=== PATIENT | male | born 1985 ===

== ENCOUNTER 2017-04-29 17:41 | Emergency (ER) | payer MEDICAID ==
[2017-04-29 18:01] VITALS: TEMP 98.4; O2SAT 98
[2017-04-29] MEDS ORDERED: Tetracaine 0.5% Ophth 2 ML BOTTLE OD ONE (18:50)
[2017-04-29] MEDS ORDERED: Fluorescein 1 mg Ophthalmic Strip OD ONE (18:51)
[2017-04-29] MEDS ORDERED: Fluorescein 1 mg Ophthalmic Strip ONE (18:54)
[2017-04-29] MEDS ORDERED: Tetracaine 0.5% Ophth (OR ONLY) ONE (18:55)
--- NOTE | 2017-04-29 19:23 | C.PDOC ---
History Of Present Illness 04/29/2017 Silver Mauro is a 31 year old male, who presents to the emergency department complaining of pain and redness to the right eye, along with tearing. 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 Patient denies chest pain, shortness of breath, headache, fever, chills, cough, nausea, vomiting, diarrhea, abdominal pain, dizziness, or other complaints. Time Seen by Provider: 04/29/17 18:03 Chief Complaint (Nursing): Eye Problem History Per: Patient History/Exam Limitations: no limitations Onset/Duration Of Symptoms: Days (3 days ago) Current Symptoms Are (Timing): Still Present Injury To Eye?: No Wears Contact Lens?: No Associated Symptoms: Discharge From Eye (tearing) Past Medical History Reviewed: Historical Data, Nursing Documentation, Vital Signs Vital Signs: Last Vital Signs Temp 98.4 F 04/29/17 17:56 Pulse 78 04/29/17 19:34 Resp 16 04/29/17 19:34 BP 128/78 04/29/17 19:34 Pulse Ox 98 04/29/17 21:54 - Medical History PMH: Sleep Apnea Family History: States: Unknown Family Hx - Social History Hx Alcohol Use: Yes Hx Substance Use: No - Immunization History Hx Tetanus Toxoid Vaccination: No Hx Influenza Vaccination: No Hx Pneumococcal Vaccination: No Review Of Systems Except As Marked, All Systems Reviewed And Found Negative. Constitutional: Negative for: Fever Eyes: Positive for: Pain, Redness, Other (tearing). Negative for: Vision Change Cardiovascular: Negative for: Chest Pain Respiratory: Negative for: Shortness of Breath Neurological: Negative for: Headache, Dizziness Physical Exam - Physical Exam Appears: Well, Non-toxic, No Acute Distress Skin: Normal Color, Warm, Dry Head: Atraumatic, Normacephalic Eye(s): bilateral: Normal Inspection, PERRL, EOMI, right: Eyelid Inflammation ( no inflammation), Other (mild conjunctivitis) Nose: Normal Throat: Normal Neck: Normal Extremity: Normal ROM Neurological/Psych: Oriented x3, Normal Speech, Normal Cognition, Normal Motor, Normal Sensation Gait: Steady ED Course And Treatment O2 Sat by Pulse Oximetry: 98 (room air) Pulse Ox Interpretation: Normal Medical Decision Making Medical Decision Making: Progress Notes: Fluorescein was positive and corneal abrasion. No foreign bodies were detected. Patient will be given eye drops and is advised to follow up with tile classifier. Disposition - Disposition Referrals: [facility] [Outside] [facility] [Outside] Raleigh Cardenas MD [Staff Provider] - Disposition: HOME/ ROUTINE Disposition Time: 19:21 Condition: GOOD Additional Instructions: Follow up with the Eye doctor within 1-2 days. Return if worsened. Prescriptions: Tobramycin 0.3% [Tobramycin 5 Ml] 1 drop OU TID #1 bottle Instructions: Corneal Abrasion (ED) Forms: [employer] (Sammarinese) - Clinical Impression Clinical Impression: Corneal abrasion - Scribe Statement The provider has reviewed the documentation as recorded by the Scribe 04/29/2017 Scribe Attestation: Dasha Browne MD Scribe Attestation: All medical record entries made by the Scribe were at my direction and personally dictated by me. I have reviewed the chart and agree that the record accurately reflects my personal performance of the history, physical exam, medical decision making, and the department course for this patient. I have also personally directed, reviewed, and agree with the discharge instructions and disposition.
[2017-04-29 19:35] VITALS: BP 128/78; PULSE 78; RESP 16
== END 2017-04-29 19:34 | disposition home or self-care (01) ==
LOC: C.ER 17:41
DX: S05.01XA Injury of conjunctiva and corneal abrasion without foreign body, right eye, initial encounter (principal); X58.XXXA Exposure to other specified factors, initial encounter